=== PATIENT | female | born 1970 | race African-American/Black ===

== ENCOUNTER 2021-10-28 20:24 | Emergency (ER) | payer MEDICAID, SELFPAY ==
[2021-10-28 20:25] VITALS: BP 166/103; PULSE 78; RESP 16; TEMP 36.4; O2SAT 98; BMI 29.2
[2021-10-28] MEDS: DiphenhydrAMINE 50 MG/ML Syringe 25 MG IV (20:51)
[2021-10-28] MEDS: MethylPREDNISolone 125 MG/2 ML Vial IV (20:54)
--- NOTE | 2021-10-28 21:05 | EX.ED.DYSGE1 ---
HPI History of Present Illness Chief Complaint: Allergic Reaction Detail of Chief Complaint: Patient had a allergic reaction to earrings. With swelling of her face and Informant: patient Onset/Context/Timing Onset: Days (Onset Sunday of this week) Context: Sudden Onset Timing: Continuous Quality: Pleuritic rash Location: Left ear, face and neck Current Severity: Moderate Maximum Severity: Moderate Worsened by: Contact dermatitis to earring Relieved by: Nothing Associated Symptoms Associated Symptoms: Reported change in voice Narrative Narrative: Patient is a 51-year-old woman who presents with allergic reaction. She has not taken or done nothing for the rash other than remove the earrings. She complains of weeping drainage from her earlobe. She complains of swelling over the left side of her face and anterior left neck. She reports change in voice. She denies drooling. She states yesterday she had wheezing. She is not had wheezing today. She denies shortness of breath. Denies nausea, vomit diarrhea. Denies orthostatic symptoms. Prior similar symptoms: No Recent Illness/Hospitalization: No PFSH PFS Medical History Alcohol abuse Anxiety Depression Hypertension Home Medications diphenhydramine HCl 25 mg capsule (Benadryl) 25 mg PO TID #20 caps 10/28/21 [Rx Last Taken Unknown] famotidine 20 mg tablet 20 mg PO BID #14 TABLETS 10/28/21 [Rx Last Taken Unknown] prednisone 10 mg tablet 10 mg PO UD #33 tabs 10/28/21 [Rx Last Taken Unknown] Allergy/AdvReac Type Severity Reaction Status Date / Time acetaminophen [From Vicodin] Allergy Hives Verified 10/28/21 20:32 bacitracin Allergy Rash Verified 10/28/21 20:32 [From Neosporin ([id number])] hydrocodone [From Vicodin] Allergy Hives Verified 10/28/21 20:32 neomycin Allergy Rash Verified 10/28/21 20:32 [From Neosporin ([id number])] polymyxin B Allergy Rash Verified 10/28/21 20:32 [From Neosporin ([id number])] wool Allergy Hives Verified 10/28/21 20:32 Social History (Updated 10/28/21 @ 21:[address] Hussein Santiago MD) household members: none housing: other Smoking Status: Light Smoker (<10/day) alcohol intake: current substance use type: marijuana ROS ROS ED Constitutional Constitutional ED: Denies chills, fever(s), subjective or sweats Eyes Eyes: Denies blurry vision, change in vision or diplopia ENT ENT ED: Denies ear pain, rhinorrhea or sore throat Cardiovascular Cardiovascular: Denies chest pain, orthopnea, palpitations, paroxysmal nocturnal dyspnea or racing heartbeat Respiratory/Chest Respiratory/Chest: Reports other Details: Wheezing yesterday ; Denies cough, dyspnea, dyspnea on exertion, orthopnea, paroxysmal nocturnal dyspnea or sputum Gastrointestinal Gastrointestinal: Denies diarrhea, nausea or vomiting Musculoskeletal Musculoskeletal: Denies arthralgias, back pain, myalgias or neck pain Integumentary Reports rash Neurologic Neurologic: Denies headache(s) or paresthesias Allergic/Immunologic Allergic/Immunologic ED: Denies mouth swelling, tongue swelling or urticaria EXAM Physical Exam Const Vital Signs: 10/28/21 20:25 10/28/21 21:47 Temperature 97.6 F L Temperature Source Temporal Pulse Rate 78 Respiratory Rate 16 16 Blood Pressure 166/103 H 162/98 H Blood Pressure Mean 124 119 Pulse Ox 98 100 Oxygen Delivery Method Room Air Room Air Positive well nourished and well developed General Appearance ED: well developed and NAD; Negative for cyanotic or diaphoretic HEENT Reports moist mucous membranes HEENT Narrative: There is swelling of the left earlobe with evidence of contact dermatitis swelling of the lower part of the face on the left involving the angle of the mandible body of the mandible region. Also submandibular region. There is soft tissue fullness. Trachea is midline. There is no inspiratory expiratory stridor. There is no lymphadenopathy. There is no evidence of Ludewig's angina. Eyes PERRL and EOMs intact bilaterally General Eye ED: Negative for pale conjunctiva or scleral icterus Neck no lymphadenopathy, supple and no JVD Neck Narrative: And document under H EENT narrative Chest Wall inspection of chest normal Resp normal respiratory effort and clear to auscultation bilaterally Cardio regular rate, regular rhythm, S1 normal heart sound, S2 normal heart sound and no murmurs GI normal to inspection, nondistended, normoactive bowel sounds, non-tender and non-distended; Negative for hepatosplenomegaly or no masses Palpation: soft Back/Spine no CVA tenderness Cervical Spine: Negative for cervical spine tenderness Thoracic Spine / Upper Back: Negative for thoracic spinal tenderness Extremity normal to inspection General Extremety ED: Negative for edema or tenderness General Extremity: Negative for edema Neuro oriented x3, CN's II-XII intact bilaterally and no sensory deficits noted Sensorium / Orientation: alert Motor Exam: Negative for strength 5/5 throughout Skin Skin Narrative: Contact dermatitis involving the left ear face and neck MDM MDM MDM Narrative Medical decision making narrative: Since patient reports systemic findings even though none are noted today we will treat with H1 and H2 mari[place] and systemic steroids Patient was reassessed at 2222. She feels markedly better. She looks better. Plan is to discharge with prescription for H1, H2 mari[place] and prednisone. Since this involves her face will not place on steroid cream Discharge Plan Triage Chief Complaint: Allergic Reaction ED Provider: Hussein Santiago Dx/Rx/DC Orders Clinical Impression: Irritant contact dermatitis due to metals, Allergic reaction Instructions: ED Contact Dermatitis Prescriptions: New prednisone 10 mg tablet 10 mg PO UD Qty: 33 0RF Rx Instructions: Take 4 tablets daily for 3 days, then 3 daily for 3 days, then 2 daily for 3 days, then 1 a day for 3 days then 1 QOD for 3 doses. famotidine [famotidine] 20 mg tablet 20 mg PO BID Qty: 14 0RF diphenhydramine HCl [Benadryl] 25 mg capsule 25 mg PO TID Qty: 20 0RF Primary Care Provider: SVEN PUGH Referrals: [facility],Out of [Non-Staff] - 1 Week if not improving Disposition Disposition: Home, Self Care
[2021-10-28] MEDS: Famotidine 200 MG/20 ML MDV 20 MG in 0.9% Normal Saline (Pres. free 8 ML 300 MG IV (21:15)
[2021-10-28 21:47] VITALS: BP 162/98; RESP 16; O2SAT 100
[2021-10-28 22:58] VITALS: BP 155/98; PULSE 78; RESP 16; O2SAT 97
== END 2021-10-28 23:56 | disposition home or self-care (01) ==
PROVIDERS: Emergency Provider Emergency Medicine; Visit Provider Emergency Medicine
DX: L24.81 Irritant contact dermatitis due to metals (principal); I10 Essential (primary) hypertension; F17.200 Nicotine dependence, unspecified, uncomplicated; F12.90 Cannabis use, unspecified, uncomplicated; F41.9 Anxiety disorder, unspecified; F32.A Depression, unspecified; Z79.899 Other long term (current) drug therapy
CPT/HCPCS: 96374; 96375; 99285; A4216; J3490